=== PATIENT | female | born 1995 | race Caucasian/White ===

== ENCOUNTER 2023-02-23 08:58 | Outpatient (CLI) | payer BC | END 2023-02-23 08:59 | disposition home or self-care (01) | LOC: CSHWCC 08:58 | PROVIDERS: ATTEND Nurse Practitioner Family | DX: T81.89XD Other complications of procedures, not elsewhere classified, subsequent encounter (principal) | CPT/HCPCS: 17250; 99203; G0463 ==

== ENCOUNTER 2023-03-02 09:18 | Outpatient (CLI) | payer BC | END 2023-03-02 09:19 | disposition home or self-care (01) | LOC: CSHWCC 09:18 | PROVIDERS: ATTEND Nurse Practitioner Family | DX: T81.89XD Other complications of procedures, not elsewhere classified, subsequent encounter (principal) | CPT/HCPCS: 97602 ==

== ENCOUNTER 2023-03-12 11:04 | Outpatient (CLI) | payer BC | END 2023-03-12 11:05 | disposition home or self-care (01) | LOC: CSHWCC 11:04 | PROVIDERS: ATTEND Nurse Practitioner Family | DX: T81.89XD Other complications of procedures, not elsewhere classified, subsequent encounter (principal) | CPT/HCPCS: 97602 ==

== ENCOUNTER 2025-03-03 11:55 | Day surgery (SDC) | payer OTHER ==
[2025-03-03] MEDS: Acetaminophen 500 MG TAB PO SCH (13:19)
[2025-03-03 13:35] LABS: Glucose, Urine (Dipstick) Normal (Negative); Leukocyte 25 (Negative); Protein, Urine (Dipstick) 30 mg/dl (Neg-Trace); Specific Gravity, Urine 1.020 (1.005-1.030)
[2025-03-03 13:57] LABS: Bacteria/HPF 2+ HPF (None Seen); CAUTI Indications for Culture Pregnancy; Mucous/LPF 1+ LPF (<2+); RBC/HPF None Seen HPF (0-3); WBC/HPF 0-3 HPF (0-3)
[2025-03-03 14:00] LABS: Urine Culture Reflex Yes Yes
== END 2025-03-03 15:45 | disposition home or self-care (01) ==
LOC: CSHLD/OP 11:55
PROVIDERS: ATTEND Family Medicine
DX: O47.02 False labor before 37 completed weeks of gestation, second trimester (principal); Z3A.26 26 weeks gestation of pregnancy; Z88.5 Allergy status to narcotic agent; Z91.013 Allergy to seafood; Z79.899 Other long term (current) drug therapy
CPT/HCPCS: 76817; 81001; 87086; 87480; 87510; 87660; J3010

== ENCOUNTER 2025-05-04 14:53 | Inpatient (IN) | payer OTHER ==
[2025-05-04] MEDS ORDERED: Carboprost 250 MCG/ML AMP IM PRN (16:08)
[2025-05-04] MEDS ORDERED: Acetaminophen 500 MG TAB PO PRN (16:08)
[2025-05-04] MEDS ORDERED: Methylergonovine 0.2 MG/ML VIAL IM PRN (16:08)
[2025-05-04] MEDS ORDERED: Diphenoxylate HCl/Atropine Tablet PO PRN ×2 (16:08)
[2025-05-04] MEDS ORDERED: Ondansetron PF 4 MG/2 ML Vial IVP PRN (16:08)
[2025-05-04] MEDS ORDERED: hydrALAZINE 20 MG/ML VIAL SLOW IVP PRN (16:08)
[2025-05-04] MEDS ORDERED: Oxytocin 30 units/NS 500 ML 500 ML IV SCH (16:15)
[2025-05-04 16:22] LABS: Hematocrit 37.2 % (34.9-44.5); Hemoglobin 13.0 g/dL (12.0-15.5); Mean Corpuscular Hemoglobin 32.0 pg (27.0-33.0); Mean Corpuscular Volume 91.6 fL (81.6-98.3); Platelet Count 264 10x3/uL (150-450); Red Blood Cell (RBC) Count 4.06 10x6/uL (3.90-5.03); White Blood Cell (WBC) Count 10.43 10x3/uL (3.5-10.5)
[2025-05-04 16:29] VITALS: BMI 23.1
[2025-05-04 16:57] LABS: Syphilis Antibody Index 0.10 S/CO (<1.00 Non-Reactive)
[2025-05-04 16:59] LABS: Hep B Surf Ag - L&D Non-Reactive S/CO (NonReactive)
[2025-05-05] MEDS: Benzocaine/Menthol 1 LOZ LOZ PO PRN (08:35)
[2025-05-05] MEDS: Benzonatate 100 MG CAP PO PRN (08:35)
[2025-05-05] MEDS ORDERED: Bicitra 30 ML UDCUP PO PRN (08:52)
[2025-05-05] MEDS ORDERED: Famotidine/PF 20 mg/2ml Vial SLOW IVP PRN (08:52)
[2025-05-05] MEDS ORDERED: Simethicone Chewable 80 MG TAB PO PRN (12:46)
[2025-05-05] MEDS ORDERED: Methylergonovine 0.2 MG TAB PO PRN (12:46)
[2025-05-05] MEDS ORDERED: Methylergonovine 0.2 MG/ML VIAL IM PRN (12:46)
[2025-05-05] MEDS ORDERED: diphenhydrAMINE 25 MG CAP PO PRN (12:46)
[2025-05-05] MEDS ORDERED: hydrALAZINE 20 MG/ML VIAL SLOW IVP PRN (12:46)
[2025-05-05] MEDS ORDERED: HYDROcodone/Acetaminophen 5/325 mg Tablet PO PRN ×2 (12:46)
[2025-05-05] MEDS ORDERED: Bisacodyl 10 MG SUPP PR PRN (12:46)
[2025-05-05] MEDS ORDERED: Lanolin Ointment 7 GM TUBE TOP PRN (12:46)
[2025-05-05] MEDS ORDERED: Oxytocin 30 units/NS 500 ML 500 ML IV SCH (13:00)
[2025-05-05] MEDS ORDERED: diphenhydrAMINE 50 MG/ML VIAL IVP PRN (13:40)
[2025-05-05] MEDS ORDERED: Meperidine HCl/PF 25 MG (1 mL) VIAL SLOW IVP PRN (13:40)
[2025-05-05] MEDS ORDERED: Ondansetron PF 4 MG/2 ML Vial IVP PRN (13:40)
[2025-05-05] MEDS ORDERED: Communication Order-Pharmacy FS SCH (13:45)
[2025-05-05] MEDS ORDERED: Ibuprofen 800 MG TAB PO SCH (14:00)
[2025-05-05] MEDS: Ketorolac Tromethamine 30 MG (1 mL) VIAL IVP SCH (15:44)
[2025-05-05] MEDS: Ondansetron PF 4 MG/2 ML Vial ONE (16:16)
[2025-05-05] MEDS: Famotidine 20 MG TAB PO SCH (16:16)
[2025-05-05] MEDS: PHENYLEPHRINE-NS 100 MCG/ML 10 ML SYRINGE ONE (16:17)
[2025-05-05] MEDS: Tranexamic Acid 1,000 MG/10 ML VIAL ONE (16:17)
[2025-05-05] MEDS: Oxytocin 10 UNITS/ML VIAL ONE ×2 (16:17)
[2025-05-05] MEDS: Ferrous Sulfate 325 MG TAB PO SCH (21:00)
[2025-05-05] MEDS: Ketorolac Tromethamine 30 MG (1 mL) VIAL IVP PRN (21:39)
[2025-05-06 03:46] LABS: Hematocrit 33.0 % (34.9-44.5); Hemoglobin 11.1 g/dL (12.0-15.5); Mean Corpuscular Hemoglobin 31.9 pg (27.0-33.0); Mean Corpuscular Volume 94.8 fL (81.6-98.3); Platelet Count 225 10x3/uL (150-450); Red Blood Cell (RBC) Count 3.48 10x6/uL (3.90-5.03); White Blood Cell (WBC) Count 11.01 10x3/uL (3.5-10.5)
[2025-05-06] MEDS: HYDROcodone/Acetaminophen 5/325 mg Tablet PO PRN (07:54)
[2025-05-06] MEDS: Ibuprofen 800 MG TAB PO SCH (14:03)
[2025-05-07] MEDS: Ondansetron PF 4 MG/2 ML Vial IVP PRN (08:40)
[2025-05-07 09:03] VITALS: BP 144/71; TEMP 98.6
[2025-05-07] MEDS: Ibuprofen 800 MG TAB PO SCH (09:45)
[2025-05-07] MEDS: HYDROcodone/Acetaminophen 5/325 mg Tablet PO PRN (10:39)
== END 2025-05-07 12:35 | disposition home or self-care (01) | DRG 787 ==
LOC: CSHLD 14:53 → CSHPED 05-05 15:55
PROVIDERS: ADMIT Family Medicine; ATTEND Family Medicine
PROC: 10D00Z1 Extraction of Products of Conception, Low, Open Approach (ICD-10-PCS; principal; 2025-05-04)
PROC: 4A1HXCZ Monitoring of Products of Conception, Cardiac Rate, External Approach (ICD-10-PCS; 2025-05-04)
PROC: 3E03329 Introduction of Other Anti-infective into Peripheral Vein, Percutaneous Approach (ICD-10-PCS; 2025-05-04)
DX: O32.1XX0 Maternal care for breech presentation, not applicable or unspecified (principal); O41.03X0 Oligohydramnios, third trimester, not applicable or unspecified; O76 Abnormality in fetal heart rate and rhythm complicating labor and delivery; Z3A.35 35 weeks gestation of pregnancy; Z87.440 Personal history of urinary (tract) infections; Z98.890 Other specified postprocedural states; Z88.5 Allergy status to narcotic agent; Z91.013 Allergy to seafood; Z37.0 Single live birth
CPT/HCPCS: 36415; 51702; 76819; 85027; 86780; 86850; 86900; 86901; 87340; 88307; J1885; J2274; J2405; J2590